=== PATIENT | female | born 1975 | race Two or more races ===

== ENCOUNTER 2024-04-14 15:31 | Outpatient (RCR) | payer MEDICAID, SELFPAY | END 2024-05-05 23:59 | disposition home or self-care (01) | LOC: SCTC 15:31 | PROVIDERS: PCP Family Medicine; Referring Provider Family Medicine; Visit Provider Nurse Practitioner Family | DX: C92.10 Chronic myeloid leukemia, BCR/ABL-positive, not having achieved remission (principal); N92.4 Excessive bleeding in the premenopausal period; D50.9 Iron deficiency anemia, unspecified; K21.9 Gastro-esophageal reflux disease without esophagitis | CPT/HCPCS: 99212; G0463 ==

== ENCOUNTER 2024-05-07 09:01 | Outpatient (RCR) | payer MEDICAID, SELFPAY | END 2024-06-05 23:59 | disposition home or self-care (01) | LOC: SCTC 09:01 | PROVIDERS: PCP Family Medicine; Referring Provider Family Medicine; Visit Provider Nurse Practitioner Family | DX: D50.9 Iron deficiency anemia, unspecified (principal); C92.10 Chronic myeloid leukemia, BCR/ABL-positive, not having achieved remission; K21.9 Gastro-esophageal reflux disease without esophagitis; N92.0 Excessive and frequent menstruation with regular cycle | CPT/HCPCS: 99212; G0463 ==

== ENCOUNTER 2024-06-25 15:26 | Outpatient (RCR) | payer MEDICAID, SELFPAY ==
--- NOTE | 2024-06-25 16:41 | CTCFLWUP_ITS ---
Patient: ANALIA RODRIGUEZ : 1975 Page 2 of 2 FOLLOW UP NOTE DATE OF SERVICE: 06/25/2024 NAME: ANALIA RODRIGUEZ ACCOUNT: [id number] : 1975 AGE: 49 INTERVAL HISTORY: Patient in for follow-up for iron deficiency anemia. Labs from 04/15/2024 show hemoglobin 10.6, MCV 100, iron saturation 18%, ferritin 50. 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 Patient unable to tolerate oral ferrous sulfate due to severe constipationpatient denies abdominal pain chest pain weight loss. ONCOLOGY HISTORY: Chronic myelogenous leukemia (P210), chronic phase (08/27/2019). Sprycel started on 08/28/2019. Sprycel discontinued on 08/22/2021 due to left-sided chest discomfort as well as shortness of breath upon walking short distances. Gleevec started on 08/22/2021. DIAGNOSIS: Chronic myelogenous leukemia (P210), chronic phase (08/27/2019). Sprycel started on 08/28/2019. Sprycel discontinued on 08/22/2021 due to left-sided chest discomfort as well as shortness of breath upon walking short distances. Gleevec started on 08/22/2021. History of obesity. History of iron deficiency anemia secondary to menorrhagia DATE OF DIAGNOSIS: STAGE/TNM: TREATMENT HISTORY: Care?Plan Start?Date Cycle Day Intent VENOfer?200mg?IV?wkly 02/24/2020 1 70 Palliative FERAheme 05/08/2024 1 30 Palliative HISTORY OF PRESENT ILLNESS: OTHER MEDICAL HISTORY/CONDITIONS: Hypertension FAMILY HISTORY: SOCIAL HISTORY: ASSISTANT COMMUNITY MANAGER HISTORY: MEDICATIONS: 1. Arthritis Pain Reliever - 650 mg 1 tab Three times a day 2. carvedilol - 3.125 mg 1 tab Twice a Day 3. ibuprofen - 400 mg 1 tab 1 tab po twice a day prn pain 4. imatinib - 400 mg 1 tab Daily 5. omeprazole - 20 mg 1 tab one po q daily 6. potassium chloride - 8 mEq 1 Capsule one po every other day 7. Zoloft - 50 mg 1 tab In the evening Medications Last Reconciled by Analia Herrera MA on 06/25/2024 ALLERGIES: Penicillins REVIEW OF SYSTEMS: A complete 14-point review of systems was performed and is negative except as noted in interval history. PHYSICAL EXAMINATION: VITAL SIGNS: Temperature?99.5, B/P?155/92, Oxygen?Saturation?98% Weight?202?lbs (Change?since?06/08/24:?1.6?lbs) PAIN: 0 - No pain ECOG Performance Status: 0 - Asymptomatic and fully active Not done this visit is telemedicine. LABORATORY DATA: I have personally reviewed and interpreted each of the patient?s relevant lab tests, abnormal findings are below: Date 10/05/19 ??WHITE?BLOOD?COUNT?(Thou/mm3) 4.7 ??RED?BLOOD?COUNT?(Miln/mm3) 3.50?L ??HEMOGLOBIN?(gm/dl) 10.7?L ??HEMATOCRIT?(%) 33.2?L ??PLATELET?COUNT?(Thou/mm3) 236 ??NEUTROPHILS?%,?AUTO?(%) 49 ??LYMPH?%,?AUTO?(%) 39 ??NEUTROPHILS,?AUTO?(Thou/mm3) 2.3 ASSESSMENT/PLAN: 1. Chronic myelogenous leukemia, chronic phase. BCR/ABL transcript levels negative, (04/07/2024). Currently on Gleevec (imatinib) 400 mg p.o. daily, mild periorbital edema, tolerable for patient. CT abdomen and pelvis, on 10/15/2022 hepatomegaly, no abdominal or pelvic mass, no abdominal or pelvic Iymphadenopathy. Continue Gleevec. CBC CMP BCR ABL transcript I prior to next follow-up Advised to do it every 3 months 2. GERD Sore throat has resolved. Standard fluoroscopically-guided esophagram showed gastroesophageal reflux, patient taking omeprazole, advised to follow-up with PCP and GI for management CT soft tissue neck showed no soft tissue neck mass, recommended standard ?uoroscopically guided esophagram, 01/23/2024. EGD done on 12/30/2023 showed esophagitis, also had colonoscopy done, we do not have report was told it was normal. 3. Iron deficiency anemia secondary to menorrhagia Status post IV Venofer infusions 2019 Patient only complaint today is feeling tired. History of menorrhagia, patient is perimenopausal, LMP was 03/24/2024, heavy Patient advised to follow-up with [employer] COMMUNITY MANAGER Previously has declined oral control for menses regulation. Feraheme 510 mg IV x 2 infusions, weekly. CBC CMP ferritin iron studies RETURN TO CLINIC: 4 months BILLING AND COMPLIANCE: I reviewed external records from providers outside my specialty as summarized above. I spent a total of 50 minutes on this patient?s care on the day of their visit excluding time spent related to any billed procedures. This time includes time spent with the patient as well as time spent documenting in the medical record, reviewing patients records and tests, obtaining history, placing orders, communicating with other healthcare professionals, counseling the patient, family or caregiver, and/or care coordination for the diagnoses above. Electronically Signed by: Roney Sanchez MD T: 4:39 PM CC: PCP: Wilner Richey Referring: Wilner Richey This document was completed utilizing speech recognition software. Grammatical errors, random word insertions, pronoun errors, and incomplete sentences are an occasional consequence of this system due to software limitations, ambient noise, and hardware issues. Any formal questions or concerns about the content, text or information contained within the body of this dictation should be directly addressed to the provider for clarification.
== END 2024-07-03 23:59 | disposition home or self-care (01) ==
LOC: SCTC 15:26
PROVIDERS: PCP Family Medicine; Referring Provider Family Medicine; Visit Provider Internal Medicine Hematology & Oncology
DX: D50.9 Iron deficiency anemia, unspecified (principal); N92.0 Excessive and frequent menstruation with regular cycle; C92.10 Chronic myeloid leukemia, BCR/ABL-positive, not having achieved remission; R16.0 Hepatomegaly, not elsewhere classified; K21.9 Gastro-esophageal reflux disease without esophagitis
CPT/HCPCS: 99213; J7050; Q0138; G0463

== ENCOUNTER 2024-07-15 19:18 | Emergency (ER) | payer MEDICAID, SELFPAY ==
[2024-07-15 19:35] VITALS: BP 151/84; PULSE 78; RESP 18; TEMP 36.8; O2SAT 95
--- NOTE | 2024-07-15 19:59 | XR_ITS ---
Examination: Venous duplex lower extremity sonogram, bilateral. Date and time of exam: July 15, 2024 2057 hrs. Indications: Bilateral leg pain beginning 5 days ago Technique: Multiple sonographic images of the deep venous system have been obtained. B-mode/2-D grayscale imaging of vascular structures and Doppler spectral analysis (waveforms) and color performed Both legs are examined. Findings: Deep venous systems do not demonstrate abnormal echogenicity. All visualized deep veins exhibit compressibility. All visualized deep veins exhibit augmentation. Impression: Negative for deep vein thrombosis
--- NOTE | 2024-07-15 19:59 | XR_ITS ---
Examination: Transvaginal ultrasound of the pelvis, complete Technique: Transvaginal sonographic images pelvis performed using herring scale imaging Exam date and time: July 15, 2024 2113 hours Indications: Pelvic pain beginning 5 days ago Findings: Uterus 8.9 cm endometrial stripe 0.8 cm Uterine body mass 15 x 10 x 13 mm Ovaries obscured by bowel gas Impression: Small area of uterine body fibroid degeneration.
--- NOTE | 2024-07-15 20:01 | PD.EDRME ---
Rapid Medical Screening Exam [facility] Arrival date/time: 07/15/24 19:18 49F with history of CML presents to ED with several days of bilateral lower pain (R>L) w/o fall/trauma. Patient also has lower pelvic pain and is on her cycle, though she doesn't usually have pain/cramps. Patient denies dysuria and SOB. Chief Complaint: Abdominal Pain Vital signs: Vital Signs Temperature 98.3 F 07/15/24 19:35 Pulse Rate 78 07/15/24 19:35 Respiratory Rate 18 07/15/24 19:35 Blood Pressure 151/84 H 07/15/24 19:35 Pulse Oximetry (%) 95 07/15/24 19:35 Oxygen Delivery Method Room Air 07/15/24 19:35
[2024-07-15 20:43] LABS: Collection Type, Urine Clean Catch
[2024-07-15 20:57] LABS: Basophils # (Auto) 0.1 Thou/mm3 (0.0-0.2); Basophils % (Auto) 1 % (0-2.5); Eosinophils # (Auto) 0.2 Thou/mm3 (0.0-0.5); Eosinophils % (Auto) 4 % (0-10); Hematocrit 32.6 % (36.0-46.0); Hemoglobin 10.6 g/dL (12.0-16.0); Immature Granulocytes % (Auto) 0 % (0-0); Immature Granulocytes Auto 0.01 Thou/mm3 (0.00-0.00); Lymphocytes # (Auto) 1.6 Thou/mm3 (1.0-4.8); Lymphocytes % (Auto) 28 % (10-50); Mean Corpuscular HGB Conc 32.5 g/dl (31.0-37.0); Mean Corpuscular Hemoglobin 31.6 pg (25.0-35.0); Mean Corpuscular Volume 97 fL (80-100); Monocytes # (Auto) 0.4 Thou/mm3 (0.0-0.8); Monocytes % (Auto) 7 % (0-12); Neutrophils # (Auto) 3.6 Thou/mm3 (1.8-7.7); Neutrophils % (Auto) 61 % (37-80); Nucleated Red Blood Cell % 0 /100 WBC (0); Platelet Count 259 Thou/mm3 (140-440); RDW Standard Deviation 56.3 fL (36.4-46.3); Red Blood Count 3.35 Miln/mm3 (4.00-5.20); White Blood Count 5.9 Thou/mm3 (3.6-11.0)
[2024-07-15 20:58] LABS: HCG Qualitative,Urine Negative
[2024-07-15 21:03] LABS: Bilirubin,Urine Negative (Negative); Blood,Urine 2+ (Negative); Clarity,Urine Clear (Clear/Hazy); Color,Urine Colorless (Lt Yel-Yel); Culture Indicated,Urine Not Indicated; Glucose, Urine Negative (Negative); Ketones,Urine Negative (Negative); Leukocyte Esterase,Urine Negative (Negative); Nitrite,Urine Negative (Negative); PH,Urine 6.5 (5.0-7.0); Protein,Urine Negative (Neg - Trace); RBC,Urine 1 /hpf (0-3); Specific Gravity,Urine 1.006 (1.001-1.035); Squamous Epithelial Cell,Urine 1 /hpf (0-5); Urobilinogen,Urine Negative mg/dL (0.0-1.0); WBC,Urine 1 /hpf (0-5)
[2024-07-15 21:16] LABS: Alanine Aminotransferase 16 U/L (10-49); Albumin, Serum 4.5 gm/dL (3.5-5.0); Albumin/Globulin Ratio 1.6 (1.2-2.2); Alkaline Phosphatase 89 U/L (46-116); Anion Gap 9 (7-16); Aspartate Amino Transferase 22 U/L (0-34); BUN/Creatinine Ratio 20 Ratio (12-20); Bilirubin,Total 0.4 mg/dL (0.3-1.2); Blood Urea Nitrogen 14 mg/dL (9-23); Calcium 9.4 mg/dL (8.3-10.6); Calcium (Corrected) 9.4 mg/dL (8.5-10.1); Carbon Dioxide 27.7 mMol/L (20.0-31.0); Chloride 103 mMol/L (98-107); Creatinine (Component) 0.7 mg/dL (0.6-1.3); Globulin 2.9 gm/dL (2.3-3.5); Glucose 95 mg/dL (74-106); Osmolality,Calculated 279 (275-295); Potassium 4.5 mMol/L (3.4-5.1); Sodium 140 mMol/L (136-145); Total Protein 7.4 gm/dL (5.7-8.2); eGFR > 60 See Note
[2024-07-16 03:03] VITALS: BP 147/83; PULSE 75; RESP 16; TEMP 36.6; O2SAT 100
[2024-07-16 06:10] VITALS: BP 136/66; PULSE 73; RESP 18; TEMP 36.6; O2SAT 98
--- NOTE | 2024-07-16 06:44 | PD.EDADULT ---
ED General RME/HPI General Chief complaint: Abdominal Pain Stated complaint: RIGHT LOWER ABD PAIN, BILATERAL LEG PAIN Time Seen by Provider: 07/16/24 06:39 Arrival date/time: 07/15/24 19:18 CC: Bilateral lower abdominal pain HPI ongoing for the past several days has had several episodes like this in the past. Patient denies chest pain shortness of breath difficulty breathing painful urination bloody urination or diarrhea. Patient has minimal relief of the pain with ibuprofen. RME / HPI RME / HPI narrative: 07/15/24 19:18 49F with history of CML presents to ED with several days of bilateral lower pain (R>L) w/o fall/trauma. Patient also has lower pelvic pain and is on her cycle, though she doesn't usually have pain/cramps. Patient denies dysuria and SOB. Related Data Home Medications ?Medication ?Instructions ?Recorded ?Confirmed dasatinib 100 mg tablet (Sprycel) 100 mg PO QDAY 07/08/21 07/08/21 sertraline 50 mg tablet 50 mg PO QDAY 07/08/21 07/08/21 Previous Rx's ?Medication ?Instructions ?Recorded meloxicam 7.5 mg tablet 7.5 mg PO QDAY #10 tabs 07/16/24 Allergies Allergy/AdvReac Type Severity Reaction Status Date / Time Penicillins Allergy Verified 07/15/24 19:21 Review of Systems Review of Systems Narrative Review of Systems: GEN: No fever, no chills, no weight loss EYES: No discharge, no visual changes, no pain HEENT: No ear pain, no congestion, no sore throat PULM: No shortness of breath, no cough, no congestion CV: No chest pain, no dyspnea on exertion, no palpitations GI: No nausea, no vomiting, no diarrhea, + pain, no constipation : No frequency, no urgency, no dysuria MUSC/SKEL: No joint pain, no back pain SKIN: No rash PSYCH: No hallucinations, no depression HEME/LYMPH: No easy bleeding or bruising tendencies NEURO: No weakness, no headache Past Medical History Past Medical History NEUROLOGIC: Negative Neurological Disorders CARDIAC: Negative Cardiac Disorders or Congestive Heart Failure RESPIRATORY: Negative Chronic Obstructive Pulmonary Disease (COPD) or Asthma GASTROINTESTINAL: Positive Gastrointestinal Disorders and Gastroesophageal Reflux Disease GENITOURINARY: Negative Genitourinary Disorders or Renal Disease REPRODUCTIVE: Positive Previous Pregnancies MUSCULOSKELETAL: Positive Musculoskeletal Disorders and Arthritis ENDOCRINE: Negative Endocrine Disorders, Diabetes Mellitus Type 1 or Diabetes Mellitus Type 2 HEMATOLOGIC: Positive Leukemia; Negative Blood Disorders or Sickle Cell Disease PSYCHO/SOCIAL: Positive Depression and Anxiety OTHER HISTORY: Negative Autoimmune Disease or Anesthesia Reactions Family History FAMILY HISTORY: Positive Family Cardiac Disorders; Negative Family Psychiatric Problems, Family Respiratory Disorders, Family Gastrointestinal Problems, Family Cancer, Family Surgery or Family Anesthesia Reaction Social History SMOKING STATUS: Never smoker SUBSTANCE USE: does not use ED Exam Narrative Physical exam: [General: Obese not in any acute distress Head normocephalic HEENT: Within acceptable limits Neck is supple nontender Chest equal chest rise nontender to palpation Respiratory: Clear to auscultation no wheezes crackles or rubs CV: Rate rhythm is regular no murmurs rubs or clicks Abdomen diffuse lower abdominal pain no reflexive guarding or rebound tenderness. No upper abdominal pain with palpation Back: No CVA tenderness no spinous process tenderness from cervical spine thoracic and lumbar spine Skin: Intact no petechiae rash induration ulceration or crepitus Extremities: Moving all extremity against resistance cap refill less than 2 seconds neurosensory intact Neuro: Awake alert oriented x3 Glascow coma 15 no focal deficits] Course Quality Measures none Orders Category Date Time Status US transvaginal Stat Exams 07/15/24 19:59 Completed US venous doppler LE BI Stat Exams 07/15/24 19:59 Completed CBC Stat Lab 07/15/24 20:34 Completed CMP [Comprehensive Metabolic Panel] Stat Lab 07/15/24 20:34 Completed HCG Qualitative,Urine Stat Lab 07/15/24 20:35 Completed Urinalysis, C/S if Indicated Stat Lab 07/15/24 20:35 Completed Vital Signs Vital signs: Vital Signs Temperature 98.3 F 07/15/24 19:35 Pulse Rate 78 07/15/24 19:35 Respiratory Rate 18 07/15/24 19:35 Blood Pressure 151/84 H 07/15/24 19:35 Pulse Oximetry (%) 95 07/15/24 19:35 Oxygen Delivery Method Room Air 07/15/24 19:35 [facility] Patient data External records reviewed:: [facility] previous records Clinical information provided by:: patient and family Social determinants that could affect healthcare access:: none Patient has the following chronic illnesses:: None How is presenting disease/condition affected by chronic disease/condition?: uneffected by Evaluation data The following diagnostics were reviewed and interpreted by me:: lab results and radiology exam(s) Lab and/or radiology exams considered but not ordered:: Ultrasound of the abdomen shows a uterine fibroid that is degrading CBC shows no acute leukocytosis mild anemia 10 and 32 no thrombocytopenia CMP shows no acute electrolyte imbalances renal impairment transaminitis or T. bili elevation urine is negative for UTI. Venous Dopplers negative for DVT. Interpretation Summary: Suspect is uterine fibroid this degrading is causing this with referred pain in the legs. Medications Medications considered but not ordered:: None Medication administrations:: None Consultations Consultation(s) initiated? (list below): No Diagnosis Differential Diagnosis ED Complaint MDM: Uterine fibroid DVTs diverticulitis Most likely diagnosis given after review of the tests above:: Uterine fibroid Admission Indicated Admission indicated?: not indicated Explain why admission is indicated or not indicated:: Stable for discharge outpatient follow-up Admission Request Was there a request for admission?: No Disposition Plan Disposition Plan: Discharge Discharge Attestation Discharge Attestation: The patient and all family members were given an opportunity to ask questions and understood the discharge instructions. Discharge instructions specifically effects, indications for sooner follow up or return to the emergency department, and the expected course of current diagnosis. Patient condition: Stable Medical Decision Making Differential Diagnosis Differential Diagnosis: Uterine fibroid DVTs diverticulitis Lab Data 07/15/24 20:34 07/15/24 20:34 Labs: Lab Results 07/15/24 07/15/24 Range/Units 20:34 20:35 WBC 5.9 (3.6-11.0) Thou/mm3 RBC 3.35 L (4.00-5.20) Miln/mm3 Hgb 10.6 L (12.0-16.0) g/dL Hct 32.6 L (36.0-46.0) % MCV 97 (80-100) fL MCH 31.6 (25.0-35.0) pg MCHC 32.5 (31.0-37.0) g/dl RDW Std Deviation 56.3 H (36.4-46.3) fL Plt Count 259 (140-440) Thou/mm3 Neut % (Auto) 61 (37-80) % Lymph % (Auto) 28 (10-50) % [place] % (Auto) 7 (0-12) % Eos % (Auto) 4 (0-10) % Baso % (Auto) 1 (0-2.5) % Neut # (Auto) 3.6 (1.8-7.7) Thou/mm3 Lymph # (Auto) 1.6 (1.0-4.8) Thou/mm3 [place] # (Auto) 0.4 (0.0-0.8) Thou/mm3 Eos # (Auto) 0.2 (0.0-0.5) Thou/mm3 Baso # (Auto) 0.1 (0.0-0.2) Thou/mm3 Immature Gran # (Auto) 0.01 H (0.00-0.00) Thou/mm3 Absolute Nucleated RBC 0.00 (0.00-0.00) Thou/mm3 Immature Gran % 0 (0-0) % Nucleated RBC % 0 (0) /100 WBC Sodium 140 (136-145) mMol/L Potassium 4.5 (3.4-5.1) mMol/L Chloride 103 (98-107) mMol/L Carbon Dioxide 27.7 (20.0-31.0) mMol/L Anion Gap 9 (7-16) BUN 14 (9-23) mg/dL Creatinine 0.7 (0.6-1.3) mg/dL Estim Creat Clear Calc Not Performed. eGFR > 60 (60 - ) See Note BUN/Creatinine Ratio 20 (12-20) Ratio Glucose 95 (74-106) mg/dL Calculated Osmolality 279 (275-295) Calcium 9.4 (8.3-10.6) mg/dL Corrected Calcium 9.4 (8.5-10.1) mg/dL Total Bilirubin 0.4 (0.3-1.2) mg/dL AST 22 (0-34) U/L ALT 16 (10-49) U/L Alkaline Phosphatase 89 (46-116) U/L Total Protein 7.4 (5.7-8.2) gm/dL Albumin 4.5 (3.5-5.0) gm/dL Globulin 2.9 (2.3-3.5) gm/dL Albumin/Globulin Ratio 1.6 (1.2-2.2) Ur Collection Type Clean Catch Urine Color Colorless A (Lt Yel-Yel) Urine Clarity Clear (Clear/Hazy) Urine pH 6.5 (5.0-7.0) Ur Specific [place] 1.006 (1.001-1.035) Urine Protein Negative (Neg - Trace) Urine Glucose (UA) Negative (Negative) Urine Ketones Negative (Negative) Urine Blood 2+ A (Negative) Urine Nitrite Negative (Negative) Urine Bilirubin Negative (Negative) Urine Urobilinogen (Auto) Negative (0.0-1.0) mg/dL Ur Leukocyte Esterase Negative (Negative) Urine RBC 1 (0-3) /hpf Urine WBC 1 (0-5) /hpf Ur Squamous Epith Cells 1 (0-5) /hpf Urine Bacteria None (None) Ur Culture Indicated? Not Indicated Urine HCG, Qual Negative Discharge Plan Plan Patient Disposition: HOME (Self Care) Patient condition on transfer: Stable Prescriptions/Referrals Prescriptions/Med Rec: New meloxicam 7.5 mg tablet 7.5 mg PO QDAY Qty: 10 0RF No Action sertraline 50 mg Tablet 50 mg PO QDAY Sprycel 100 mg Tablet 100 mg PO QDAY Referrals: Jordy Yip PA-C [Primary Care Provider] - In 1 week Problem List Clinical Impression: Fibroid, uterine, Abdominal pain Patient/Caregiver Discharge Instructions Education Materials: Abdominal Pain, ED Uterine Fibroids Additional Instructions: Follow-up with your primary care provider take the medication as prescribed there is worsening of symptoms return to the emergency room immediately for further evaluation Print Language: Mauritanian Stand Alone Forms: Nicolle Award Info., Patient Portal Info Letter, Work/School Release LINO/NAN Supervising Physician LINO/NAN Supervising Physician: Jori Cunha ENP
[2024-07-16 06:56] VITALS: RESP 18
== END 2024-07-16 06:57 | disposition home or self-care (01) ==
PROVIDERS: Physician Assistant; Emergency Provider Emergency Medicine; PCP Physician Assistant
DX: D25.9 Leiomyoma of uterus, unspecified (principal)
CPT/HCPCS: 36415; 76830; 80053; 81001; 81025; 85025; 93970; 99284

== ENCOUNTER 2024-10-22 10:55 | Outpatient (RCR) | payer MEDICAID, SELFPAY | END 2024-11-02 23:59 | disposition home or self-care (01) | LOC: SCTC 10:55 | PROVIDERS: PCP Physician Assistant; Referring Provider Physician Assistant; Visit Provider Nurse Practitioner Family | DX: C92.10 Chronic myeloid leukemia, BCR/ABL-positive, not having achieved remission (principal); D50.9 Iron deficiency anemia, unspecified; E66.9 Obesity, unspecified; Z68.37 Body mass index [BMI] 37.0-37.9, adult; Z87.19 Personal history of other diseases of the digestive system | CPT/HCPCS: 99212; G0463 ==

== ENCOUNTER 2025-01-14 14:44 | Outpatient (RCR) | payer MEDICAID, SELFPAY | END 2025-02-02 23:59 | disposition home or self-care (01) | LOC: SCTC 14:44 | PROVIDERS: PCP Physician Assistant; Referring Provider Physician Assistant; Visit Provider Nurse Practitioner Family | DX: C92.10 Chronic myeloid leukemia, BCR/ABL-positive, not having achieved remission (principal); D50.0 Iron deficiency anemia secondary to blood loss (chronic); N92.0 Excessive and frequent menstruation with regular cycle; E66.9 Obesity, unspecified; Z68.36 Body mass index [BMI] 36.0-36.9, adult; K21.9 Gastro-esophageal reflux disease without esophagitis | CPT/HCPCS: 99212; G0463 ==

== ENCOUNTER 2025-04-22 13:53 | Outpatient (RCR) | payer MEDICAID, SELFPAY | END 2025-05-05 23:59 | disposition home or self-care (01) | LOC: SCTC 13:53 | PROVIDERS: PCP Physician Assistant; Referring Provider Physician Assistant; Visit Provider Internal Medicine Hematology & Oncology | DX: D50.0 Iron deficiency anemia secondary to blood loss (chronic) (principal); N92.0 Excessive and frequent menstruation with regular cycle; C92.10 Chronic myeloid leukemia, BCR/ABL-positive, not having achieved remission; E66.9 Obesity, unspecified; Z68.36 Body mass index [BMI] 36.0-36.9, adult; Z87.19 Personal history of other diseases of the digestive system | CPT/HCPCS: 96365; 96375; J1756; J2919; J3490; J7040 ==